=== PATIENT | male | born 1990 | race Caucasian/White ===

== ENCOUNTER 2022-05-03 15:01 | Emergency (ER) | payer MEDICAID ==
[~2022-05-03] VITALS: Ht 182.9 cm; Wt 70.4 kg
[2022-05-03 15:11] VITALS: BP 141/89
[2022-05-03] MEDS ORDERED: oxyCODONE/APAP 5-325mg tablet PO ONE (18:50)
[2022-05-03] MEDS ORDERED: OXYC-145 PO (18:57)
== END 2022-05-03 19:14 | disposition home or self-care (01) ==
LOC: ER 15:02
DX: S20.212A Contusion of left front wall of thorax, initial encounter (principal); V00.311A Fall from snowboard, initial encounter; Y93.23 Activity, snow (alpine) (downhill) skiing, snowboarding, sledding, tobogganing and snow tubing; Y92.89 Other specified places as the place of occurrence of the external cause; Y99.8 Other external cause status
CPT/HCPCS: 71100; 99284